=== PATIENT | male | born 1980 | race Caucasian/White ===

== ENCOUNTER 2016-05-31 00:18 | Emergency (ER) | payer SELFPAY ==
--- NOTE | 2016-05-31 04:03 | ED CLINICAL REPORT ---
Clinical Report - Physicians/Mid Levels [facility] [address] [place] [place] [address] 05/31/2016 0:17 Patient: TIFFANIE DAVIS Time Seen: 01:00. Arrived- Came in police custody. Historian- patient and police. History limited by vague historian. HISTORY OF PRESENT ILLNESS Chief Complaint: DEPRESSED and SUICIDAL THOUGHTS. This started several days ago. The patient has experienced situational problems related to personal finances, being homeless and drug use. Has been depressed, exhibited unusual behavior and had suicidal thoughts. The symptoms are described as severe. No injury is present. Additional history - Patient was picked up by police at [employer] in [place]. [employer] employees reported to police that the patient threatened to kill himself and pulled out a box icer while in the store. An employee was able to talk to the patient and calm him. Patient was cooperative with police. Patient reports he has been doing meth and has not slept for four days. He reports he is homeless and has not been taking very good care of himself. REVIEW OF SYSTEMS No chills, fever, sweats, calf pain or chest pain. No cough, difficulty breathing, pedal edema, palpitations or abdominal pain. No constipation, diarrhea, nausea, vomiting or urinary problems. All systems otherwise negative, except as recorded above. PAST HISTORY Problems: no known problems. Additional Surgeries: no known surgeries. Medications: None. Allergies: No Known Drug Allergy. SOCIAL HISTORY Current every day light tobacco smoker (cigarette)- less than 1/2 a pack per day. History of drug use: methamphetamines. No alcohol use. Has poor social support. No place to stay. FAMILY HISTORY Denies family medical history. ADDITIONAL NOTES The nursing notes have been reviewed. PHYSICAL EXAM Vital Signs: 05/31/2016 00:20 BP: 128/80. HR: 86. RR: 20. O2 saturation: 98%. Temp: 97.5 F. Pain level now: 2/10. Have been reviewed. Appearance: Alert. Is disheveled. Eyes: Pupils equal, round and reactive to light. Neck: Neck supple. No meningeal signs or carotid bruit. CVS: Normal heart rate and rhythm. Heart sounds normal. Respiratory: Breath sounds normal. Abdomen: Soft and nontender. Back: No tenderness. Skin: Skin warm and dry. Normal skin color. Normal skin turgor. Extremities: Extremities exhibit normal ROM. No calf tenderness. No lower extremity edema. Psych / Neuro: Speech normal. Cranial nerves normal (as tested). No cerebellar findings. No motor deficit. No sensory deficit. LABS, X-RAYS, AND EKG Laboratory Tests: CBC w Diff: (CANDY: 05/31/2016 00:40) ( Mscvd 05/31/2016 00:51) Final results Test Result Flag Units (Reference) WHITE BLOOD COUNT 7.6 K/uL (4.5-11.5) RED BLOOD COUNT 4.66 M/uL (4.50-5.90) HEMOGLOBIN 13.5 gm/dL (13.5-17.5) HEMATOCRIT 41.1 % (41.0-53.0) MEAN CELL VOLUME 88 fL (80-100) MEAN CORPUSCULAR HGB 29 pg (26-34) MEAN CORPUSCULAR HGB CONC 33 g/dL (31-37) RED CELL DISTRIBUTION WIDTH 13.1 % (11.6-14.8) PLATELET COUNT 342 K/uL (150-400) LYMPH % 40.9 H % (25-40) MONO % 3.5 % (3-14) GRANULOCYTE % 55.6 CMP: (CANDY: 05/31/2016 00:40) ( KygRcvd 05/31/2016 00:56) Final results Test Result Flag Units (Reference) GLUCOSE 105 mg/dL (70-110) BUN 43 H mg/dL (7-18) CREATININE 1.3 mg/dL (0.6-1.3) Estimated GFR >60 mL/min Estimated GFR- >60 mL/min Note: Persistent reduction over 3 months in eGFR<60 mL/min/1.73 m2 defines CKD. Patients with eGFR values>=60 mL/min/1.73 m2 may also have CKD if evidence ofpersistent proteinuria. Additional information may be foundat www.kidney.org. SODIUM 140 mmol/L (136-145) POTASSIUM 3.2 L mmol/L (3.5-5.1) CHLORIDE 101 mmol/L (98-107) CARBON DIOXIDE 26 mmol/L (21-32) CALCIUM 9.1 mg/dL (8.5-10.1) TOTAL PROTEIN 7.5 g/dL (6.4-8.2) ALBUMIN 4.0 g/dL (3.3-5.0) BILIRUBIN, TOTAL 0.7 mg/dL (0.0-1.0) ALKALINE PHOSPHATASE 92 U/L (46-116) AST (SGOT) 34 U/L (15-37) ALT (SGPT) 38 U/L (12-78) ETHYL ALCOHOL <3 L mg/dL (3-10) . PROGRESS AND PROCEDURES Course of Care: Patient is stable. Consult obtained from mental health. Case discussed. Consultation performed in ED. Patient/family counseled. Old medical records ordered. Old records unavailable. Disposition: Transferred. CLINICAL IMPRESSION Suicidal ideation. Depression. Substance abuse- methamphetamines. (Electronically signed by Jarad Pinedo MD 06/03/2016 12:56)
--- NOTE | 2016-05-31 04:03 | ED NURSING NOTES ---
Clinical Report - Nurses [place] [address] [place] [address] 05/31/2016 0:17 [id number] Triage time 00:15 May 31 2016. Acuity: LEVEL 3. Chief Complaint: SUICIDAL THOUGHTS and THOUGHTS OF HARMING SELF. SEPSIS SCREEN: Sepsis Screen: negative. Negative (no infection suspected/documented). TAMAR COMA SCORE: Young Coma Scale: 15- eyes open spontaneously (4); best verbal response- oriented x 4 (5); best motor response- obeys commands (6). --00:30 Rozina Olmedo 00:20 05/31/16. BP: 128/80. HR: 86. RR: 20. O2 saturation: 98% on room air. Temp: 97.5 F (oral). Pain level now: 03/30. --00:30 Rozina Olmedo. Weight: 72.5 kg stated. Height/Length: 68 inches Per Patient. BMI: 24.3. --00:27 Rozina Olmedo. Medications None. --00:26 Rozina Olmedo. Allergies No Known Drug Allergy. --00:26 Rozina Olmedo. History Historian: police and patient. Arrived in police custody and accompanied by police. Onset: just prior to arrival. ( Patient was picked up by police at [employer] in [place]. [employer] employees reported to police that the patient threatened to kill himself and pulled out a box car loader while in the store. An employee was able to talk to the patient and calm him. Patient was cooperative with police. Patient reports he has been doing meth and has not slept for four days. He reports he is homeless and has not been taking very good care of himself.). 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 PAST MEDICAL HX: Immunizations: status is unknown. SOCIAL HX: Light tobacco smoker (cigarette)- less than 1/2 a pack per day. History of drug use: methamphetamines. No alcohol use. No infectious disease exposure. ABUSE ASSESSMENT: No report of abuse. SELF HARM ASSESSMENT: A self harm assessment was performed. FALL RISK ASSESSMENT: Fall risk assessment completed. No fall risk identified. NUTRITIONAL RISK ASSESSMENT: The nutritional risk assessment revealed no deficiencies. FUNCTIONAL ASSESSMENT: Functional assessment: no impairments noted. LEARNING NEEDS ASSESSMENT: The learning needs assessment revealed no barriers. SKIN INTEGRITY ASSESSMENT: Skin integrity risk assessment completed. No skin integrity risk identified. --00:30 Rozina Olmedo SELF HARM ASSESSMENT: A self harm assessment was performed. The patient answered "yes" to the question "Have you recently felt down, depressed, or hopeless?", "Have you noticed less interest or pleasure in doing things?", "Do you have thoughts of harming or killing yourself?" and "Are you here because you tried to hurt yourself?" and "no" to the question "Have you ever tried to hurt yourself before today?", "Have you recently had thoughts about harming or killing others?" and "Do you have any dangerous items in your possession?". The patient reports their behavior and police reported the patient's behavior. A further in-depth assessment is planned. He has been placed under frequent supervision. He was placed in a safe room. Clothes and valuables were removed and placed at the nurses station. The ED physician has been notified. (Patient reports his situation has been difficult being homelss, he reports being lonely with no friends and feeling that he is not treated as a human by the public. Patient reports that he wants to get clean and alonzo his life but it is difficult without a job, ID or means to care for himself.). --00:50 Rozina Olmdeo. PROBLEMS: no known problems. ADDITIONAL SURGERIES: no known surgeries. Interventions ID band on patient. To treatment room. --00:30 Rozina Olmedo. PHYSICAL ASSESSMENT Ambulatory to room. GENERAL / NEURO / PSYCH: Alert. Oriented X 4. Appears in no acute distress. Affect appears normal. Patient appears calm and cooperative. Patient appears unkempt. Poor hygiene. RESPIRATORY: Respirations not labored. CVS: Normal heart rate and rhythm. SKIN: Skin is warm and dry. ( Patient reported pain in his feet, Macerated skin over the toes and soles of the feet bilaterally.). --00:35 Rozina Olmedo. NURSING PROGRESS NOTES Patient gowned. Reassurance given to the patient. Suicide precautions initiated: a safety sweep of the room has been completed. Room made safe and stripped of hazardous items. Continuous one on one supervision. Patient placed in direct sight of the nurse's station. ED Physician has been notified. Two patient identifiers checked. Call light placed in reach. Side rails up x 1. Bed placed in lowest position. Brakes of bed on. Patient ready for evaluation- chart flagged and ED physician notified. ( Patient belongings bagged, labeled and placed at nurses station.). --00:36 Rozina Olmedo 00:37. Checked patient name and birthdate: patient confirmed. Blood samples drawn from the right antecubital space by tech per protocol ; labeled in presence of the patient and sent to lab: rainbow set. --00:38 McQuoid, Phyllis, ER Tech1 00:38 Urine sample requested, patient unable to void at this time. --00:38 McQuoid, Phyllis, ER Tech1 ( Patient given PO fluids and blankets. Patient has no complaints at this time). --00:47 Rozina Olmedo Checked patient name, birthdate and visit number: patient confirmed. Instructions provided to collect clean catch urine and patient verbalized understanding. Clean catch urine collected; sample sent to lab. Specimen labeled in the presence of the patient. --01:31 Everton Jo Suicide precautions maintained. ( Patient resting, no complaints at this time.). --02:19 Rozina Olmedo ( PAT team discussing plan of care with patient). --02:36 Rozina Olmedo ( Patient to go to [facility] triage. Patient updated about plan of care.). --03:52 Rozina Olmedo. DISPOSITION / DISCHARGE Condition at departure: stable. The goals identified in the patient's plan of care were met. FALL RISK ASSESSMENT: Fall risk assessment completed. No fall risk identified. --03:58 Rozina Olmedo 03:57 05/31/16. BP: 110/60. HR: 90. RR: 20. O2 saturation: 96% on room air. Temp: 98.9 F (oral). Pain level now: 0/10. --03:58 Rozina Olmedo Transported via ambulance by nurse with monitor. Bed obtained. --03:58 Rozina Olmedo Patient's personal items include: shirt, pants, shoes and wallet; items were transported with the patient. --03:58 Rozina Olmedo Departure time: 04:37 May 31 2016. --04:37 Rozina Olmedo. Locked/Released at 05/31/2016 19:49 by Rozina Olmedo,
--- NOTE | 2016-05-31 04:03 | ED NURSING NOTES ---
Clinical Report - Nurses [place] [address] [place] [address] 05/31/2016 0:17 [id number] Triage time 00:15 May 31 2016. Acuity: LEVEL 3. Chief Complaint: SUICIDAL THOUGHTS and THOUGHTS OF HARMING SELF. SEPSIS SCREEN: Sepsis Screen: negative. Negative (no infection suspected/documented). TAMAR COMA SCORE: Chauncey Coma Scale: 15- eyes open spontaneously (4); best verbal response- oriented x 4 (5); best motor response- obeys commands (6). --00:30 Rozina Olmedo 00:20 05/31/16. BP: 128/80. HR: 86. RR: 20. O2 saturation: 98% on room air. Temp: 97.5 F (oral). Pain level now: 03/30. --00:30 Rozina Olmedo. Weight: 72.5 kg stated. Height/Length: 68 inches Per Patient. BMI: 24.3. --00:27 Rozina Olmedo. Medications None. --00:26 Rozina Olmedo. Allergies No Known Drug Allergy. --00:26 Rozina Olmedo. History Historian: police and patient. Arrived in police custody and accompanied by police. Onset: just prior to arrival. ( Patient was picked up by police at [employer] in [place]. [employer] employees reported to police that the patient threatened to kill himself and pulled out a box annealer while in the store. An employee was able to talk to the patient and calm him. Patient was cooperative with police. Patient reports he has been doing meth and has not slept for four days. He reports he is homeless and has not been taking very good care of himself.). 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 PAST MEDICAL HX: Immunizations: status is unknown. SOCIAL HX: Light tobacco smoker (cigarette)- less than 1/2 a pack per day. History of drug use: methamphetamines. No alcohol use. No infectious disease exposure. ABUSE ASSESSMENT: No report of abuse. SELF HARM ASSESSMENT: A self harm assessment was performed. FALL RISK ASSESSMENT: Fall risk assessment completed. No fall risk identified. NUTRITIONAL RISK ASSESSMENT: The nutritional risk assessment revealed no deficiencies. FUNCTIONAL ASSESSMENT: Functional assessment: no impairments noted. LEARNING NEEDS ASSESSMENT: The learning needs assessment revealed no barriers. SKIN INTEGRITY ASSESSMENT: Skin integrity risk assessment completed. No skin integrity risk identified. --00:30 Rozina Olmedo SELF HARM ASSESSMENT: A self harm assessment was performed. The patient answered "yes" to the question "Have you recently felt down, depressed, or hopeless?", "Have you noticed less interest or pleasure in doing things?", "Do you have thoughts of harming or killing yourself?" and "Are you here because you tried to hurt yourself?" and "no" to the question "Have you ever tried to hurt yourself before today?", "Have you recently had thoughts about harming or killing others?" and "Do you have any dangerous items in your possession?". The patient reports their behavior and police reported the patient's behavior. A further in-depth assessment is planned. He has been placed under frequent supervision. He was placed in a safe room. Clothes and valuables were removed and placed at the nurses station. The ED physician has been notified. (Patient reports his situation has been difficult being homelss, he reports being lonely with no friends and feeling that he is not treated as a human by the public. Patient reports that he wants to get clean and alonzo his life but it is difficult without a job, ID or means to care for himself.). --00:50 Rozina Olmedo. PROBLEMS: no known problems. ADDITIONAL SURGERIES: no known surgeries. Interventions ID band on patient. To treatment room. --00:30 Rozina Olmedo. PHYSICAL ASSESSMENT Ambulatory to room. GENERAL / NEURO / PSYCH: Alert. Oriented X 4. Appears in no acute distress. Affect appears normal. Patient appears calm and cooperative. Patient appears unkempt. Poor hygiene. RESPIRATORY: Respirations not labored. CVS: Normal heart rate and rhythm. SKIN: Skin is warm and dry. ( Patient reported pain in his feet, Macerated skin over the toes and soles of the feet bilaterally.). --00:35 Rozina Olmedo. NURSING PROGRESS NOTES Patient gowned. Reassurance given to the patient. Suicide precautions initiated: a safety sweep of the room has been completed. Room made safe and stripped of hazardous items. Continuous one on one supervision. Patient placed in direct sight of the nurse's station. ED Physician has been notified. Two patient identifiers checked. Call light placed in reach. Side rails up x 1. Bed placed in lowest position. Brakes of bed on. Patient ready for evaluation- chart flagged and ED physician notified. ( Patient belongings bagged, labeled and placed at nurses station.). --00:36 Rozina Olmedo 00:37. Checked patient name and birthdate: patient confirmed. Blood samples drawn from the right antecubital space by tech per protocol ; labeled in presence of the patient and sent to lab: rainbow set. --00:38 McQuoid, Phyllis, ER Tech1 00:38 Urine sample requested, patient unable to void at this time. --00:38 McQuoid, Phyllis, ER Tech1 ( Patient given PO fluids and blankets. Patient has no complaints at this time). --00:47 Rozina Olmedo Checked patient name, birthdate and visit number: patient confirmed. Instructions provided to collect clean catch urine and patient verbalized understanding. Clean catch urine collected; sample sent to lab. Specimen labeled in the presence of the patient. --01:31 Everton Jo Suicide precautions maintained. ( Patient resting, no complaints at this time.). --02:19 Rozina Olmedo ( PAT team discussing plan of care with patient). --02:36 Rozina Olmedo ( Patient to go to [facility] triage. Patient updated about plan of care.). --03:52 Rozina Olmedo. DISPOSITION / DISCHARGE Condition at departure: stable. The goals identified in the patient's plan of care were met. FALL RISK ASSESSMENT: Fall risk assessment completed. No fall risk identified. --03:58 Rozina Olmedo 03:57 05/31/16. BP: 110/60. HR: 90. RR: 20. O2 saturation: 96% on room air. Temp: 98.9 F (oral). Pain level now: 0/10. --03:58 Rozina Olmedo Transported via ambulance by nurse with monitor. Bed obtained. --03:58 Rozina Olmedo Patient's personal items include: shirt, pants, shoes and wallet; items were transported with the patient. --03:58 Rozina Olmedo Departure time: 04:37 May 31 2016. --04:37 Rozina Olmedo. Locked/Released at 05/31/2016 19:49 by Rozina Olmedo,
--- NOTE | 2016-05-31 04:03 | ED ORDER SUMMARY ---
..... Patient: TIFFANIE DAVIS OrderSheet [facility] VisitID: [id number] [place] [address] 35y, M Registration Date/Time: 05/31/2016 ORDER SHEET Weight: 72.5 kg (stated) Allergies: No Known Drug Allergy GENERAL ORDERS: CBC w Diff Urgent (00:05/31/2016 Isaac RIVERA) (Ack 0:27 AMcQuoid ER Tech1) (1:16 SRedmond) CMP Urgent (00:05/31/2016 Isaac RIVERA) (Ack 0:27 AMcQuoid ER Tech1) (1:16 SRedmond) Urine Drug Screen Urgent (00:05/31/2016 Isaac RIVERA) (Ack 0:27 AMcQuoid ER Tech1) (1:57 AMcQuoid ER Tech1) Ethyl Alcohol Urgent (00:05/31/2016 Isaac RIVERA) (Ack 0:27 AMcQuoid ER Tech1) (1:16 SRedmond) Suicide Precautions (00:05/31/2016 Isaac RIVERA) (Ack 0:27 AMcQuoid ER Tech1) (0:36 HSoule) MEDICATION ORDERS: IV FLUIDS: ORDER SHEET NOTES: [Electronically signed by Rozina Olmedo (19:49 05/31/2016)] [Electronically signed by Jarad Pinedo MD (12:56 06/03/2016)] [Electronically locked/signed by Rozina Olmedo (19:49 05/31/2016)]
--- NOTE | 2016-05-31 04:03 | ED ORDER SUMMARY ---
..... Patient: TIFFANIE DAVIS OrderSheet [facility] VisitID: [id number] [place] [address] 35y, M Registration Date/Time: 05/31/2016 ORDER SHEET Weight: 72.5 kg (stated) Allergies: No Known Drug Allergy GENERAL ORDERS: CBC w Diff Urgent (00:05/31/2016 Isaac RIVERA) (Ack 0:27 AMcQuoid ER Tech1) (1:16 SRedmond) CMP Urgent (00:05/31/2016 Isaac RIVERA) (Ack 0:27 AMcQuoid ER Tech1) (1:16 SRedmond) Urine Drug Screen Urgent (00:05/31/2016 Isaac RIVERA) (Ack 0:27 AMcQuoid ER Tech1) (1:57 AMcQuoid ER Tech1) Ethyl Alcohol Urgent (00:05/31/2016 Isaac RIVERA) (Ack 0:27 AMcQuoid ER Tech1) (1:16 SRedmond) Suicide Precautions (00:05/31/2016 Isaac RIVERA) (Ack 0:27 AMcQuoid ER Tech1) (0:36 HSoule) MEDICATION ORDERS: IV FLUIDS: ORDER SHEET NOTES: [Electronically signed by Rozina Olmedo (19:49 05/31/2016)] [Electronically signed by Jarad Pinedo MD (12:56 06/03/2016)] [Electronically locked/signed by Rozina Olmedo (19:49 05/31/2016)]
--- NOTE | 2016-05-31 04:03 | ED CLINICAL REPORT ---
Clinical Report - Physicians/Mid Levels [facility] [address] [place] [address] 05/31/2016 0:17 Patient: TIFFANIE DAVIS Time Seen: 01:00. Arrived- Came in police custody. Historian- patient and police. History limited by vague historian. HISTORY OF PRESENT ILLNESS Chief Complaint: DEPRESSED and SUICIDAL THOUGHTS. This started several days ago. The patient has experienced situational problems related to personal finances, being homeless and drug use. Has been depressed, exhibited unusual behavior and had suicidal thoughts. The symptoms are described as severe. No injury is present. Additional history - Patient was picked up by police at [employer] in [place]. [employer] employees reported to police that the patient threatened to kill himself and pulled out a safety deposit boxes custodian while in the store. An employee was able to talk to the patient and calm him. Patient was cooperative with police. Patient reports he has been doing meth and has not slept for four days. He reports he is homeless and has not been taking very good care of himself. REVIEW OF SYSTEMS No chills, fever, sweats, calf pain or chest pain. No cough, difficulty breathing, pedal edema, palpitations or abdominal pain. No constipation, diarrhea, nausea, vomiting or urinary problems. All systems otherwise negative, except as recorded above. PAST HISTORY Problems: no known problems. Additional Surgeries: no known surgeries. Medications: None. Allergies: No Known Drug Allergy. SOCIAL HISTORY Current every day light tobacco smoker (cigarette)- less than 1/2 a pack per day. History of drug use: methamphetamines. No alcohol use. Has poor social support. No place to stay. FAMILY HISTORY Denies family medical history. ADDITIONAL NOTES The nursing notes have been reviewed. PHYSICAL EXAM Vital Signs: 05/31/2016 00:20 BP: 128/80. HR: 86. RR: 20. O2 saturation: 98%. Temp: 97.5 F. Pain level now: 2/10. Have been reviewed. Appearance: Alert. Is disheveled. Eyes: Pupils equal, round and reactive to light. Neck: Neck supple. No meningeal signs or carotid bruit. CVS: Normal heart rate and rhythm. Heart sounds normal. Respiratory: Breath sounds normal. Abdomen: Soft and nontender. Back: No tenderness. Skin: Skin warm and dry. Normal skin color. Normal skin turgor. Extremities: Extremities exhibit normal ROM. No calf tenderness. No lower extremity edema. Psych / Neuro: Speech normal. Cranial nerves normal (as tested). No cerebellar findings. No motor deficit. No sensory deficit. LABS, X-RAYS, AND EKG Laboratory Tests: CBC w Diff: (CANDY: 05/31/2016 00:40) ( Mscvd 05/31/2016 00:51) Final results Test Result Flag Units (Reference) WHITE BLOOD COUNT 7.6 K/uL (4.5-11.5) RED BLOOD COUNT 4.66 M/uL (4.50-5.90) HEMOGLOBIN 13.5 gm/dL (13.5-17.5) HEMATOCRIT 41.1 % (41.0-53.0) MEAN CELL VOLUME 88 fL (80-100) MEAN CORPUSCULAR HGB 29 pg (26-34) MEAN CORPUSCULAR HGB CONC 33 g/dL (31-37) RED CELL DISTRIBUTION WIDTH 13.1 % (11.6-14.8) PLATELET COUNT 342 K/uL (150-400) LYMPH % 40.9 H % (25-40) MONO % 3.5 % (3-14) GRANULOCYTE % 55.6 CMP: (CANDY: 05/31/2016 00:40) ( DcgRcvd 05/31/2016 00:56) Final results Test Result Flag Units (Reference) GLUCOSE 105 mg/dL (70-110) BUN 43 H mg/dL (7-18) CREATININE 1.3 mg/dL (0.6-1.3) Estimated GFR >60 mL/min Estimated GFR- >60 mL/min Note: Persistent reduction over 3 months in eGFR<60 mL/min/1.73 m2 defines CKD. Patients with eGFR values>=60 mL/min/1.73 m2 may also have CKD if evidence ofpersistent proteinuria. Additional information may be foundat www.kidney.org. SODIUM 140 mmol/L (136-145) POTASSIUM 3.2 L mmol/L (3.5-5.1) CHLORIDE 101 mmol/L (98-107) CARBON DIOXIDE 26 mmol/L (21-32) CALCIUM 9.1 mg/dL (8.5-10.1) TOTAL PROTEIN 7.5 g/dL (6.4-8.2) ALBUMIN 4.0 g/dL (3.3-5.0) BILIRUBIN, TOTAL 0.7 mg/dL (0.0-1.0) ALKALINE PHOSPHATASE 92 U/L (46-116) AST (SGOT) 34 U/L (15-37) ALT (SGPT) 38 U/L (12-78) ETHYL ALCOHOL <3 L mg/dL (3-10) . PROGRESS AND PROCEDURES Course of Care: Patient is stable. Consult obtained from mental health. Case discussed. Consultation performed in ED. Patient/family counseled. Old medical records ordered. Old records unavailable. Disposition: Transferred. CLINICAL IMPRESSION Suicidal ideation. Depression. Substance abuse- methamphetamines. (Electronically signed by Jarad Pinedo MD 06/03/2016 12:56)
--- NOTE | 2016-06-03 12:57 | ED MAR SUMMARY ---
..... Medication Administration Record [facility] [address] [place], [place] [id number] Patient: TIFFANIE DAVIS Visit ID: [id number] 35y, M Weight: 72.5 kg Height/Length: 68 in BMI: 24.3 ALLERGIES: No Known Drug Allergy
--- NOTE | 2016-06-03 12:57 | ED DISCHARGE INSTRUCTIONS ---
Patient: TIFFANIE DAVIS General Instructions [facility] VisitID: [id number] [address] [place] [address] 35y, M Registration Date/Time: 05/31/2016 Suicidal ideation. Depression. Substance abuse- methamphetamines. (Electronically signed by Jarad Pinedo MD 06/03/2016 12:56)
--- NOTE | 2016-06-03 12:57 | ED MAR SUMMARY ---
..... Medication Administration Record [facility] [address] [place], [place] [id number] Patient: TIFFANIE DAVIS Visit ID: [id number] 35y, M Weight: 72.5 kg Height/Length: 68 in BMI: 24.3 ALLERGIES: No Known Drug Allergy
--- NOTE | 2016-06-03 12:57 | ED DISCHARGE INSTRUCTIONS ---
Patient: TIFFANIE DAVIS General Instructions [facility] VisitID: [id number] [address] [place] [address] 35y, M Registration Date/Time: 05/31/2016 Suicidal ideation. Depression. Substance abuse- methamphetamines. (Electronically signed by Jarad Pinedo MD 06/03/2016 12:56)
--- NOTE | 2016-06-03 12:57 | ED MED RECONCILIATION SUMMARY ---
Patient: TIFFANIE DAVIS Medication Reconciliation Report [facility] VisitID: [id number] [address] [place] [address] 35y, M Registration Date/Time: 05/31/2016 Weight: 72.5 kg Height/Length: 68 in. BMI: 24.3 ALLERGIES: No Known Drug Allergy The patient's Home Medications are listed below: NONE. The source(s) of the original Home Medication information: Not obtained. The following Medications were given to the patient in the Emergency Department: None. The following Medications were prescribed to the patient: None.
--- NOTE | 2016-06-03 12:57 | ED MED RECONCILIATION SUMMARY ---
Patient: TIFFANIE DAVIS Medication Reconciliation Report [facility] VisitID: [id number] [address] [place] [place] [address] 35y, M Registration Date/Time: 05/31/2016 Weight: 72.5 kg Height/Length: 68 in. BMI: 24.3 ALLERGIES: No Known Drug Allergy The patient's Home Medications are listed below: NONE. The source(s) of the original Home Medication information: Not obtained. The following Medications were given to the patient in the Emergency Department: None. The following Medications were prescribed to the patient: None.
== END 2016-05-31 04:40 ==
LOC: ED SRH 00:18
DX: F32.9 Major depressive disorder, single episode, unspecified (principal); R45.851 Suicidal ideations; F19.10 Other psychoactive substance abuse, uncomplicated; Z59.0 Homelessness; F17.210 Nicotine dependence, cigarettes, uncomplicated
CPT/HCPCS: 90100; 92010; 92760; 92761; 92762; 92763; 92764; 92765; 92766; 92767; 95059